=== PATIENT | male | born 1960 | race Caucasian/White ===

== ENCOUNTER 2021-12-05 01:44 | Emergency (ER) | payer BC, MEDICARE ==
[2021-12-05] MEDS ORDERED: methylPREDNISolone Sod Succ 125 MG in Sodium Chloride 0.9% 100 ML IV ONE (02:11)
[2021-12-05] MEDS ORDERED: Albuterol/Ipratropium 3.0-0.5 MG/3 ML Neb Soln NEB ONE ×2 (02:11→05:16)
[2021-12-05] MEDS ORDERED: Azithromycin 500 MG in Sodium Chloride 0.9% 250 ML IV ONE (02:12)
[2021-12-05] MEDS ORDERED: methylPREDNISolone Sodium Succinate 125 MG/2 ML SDV IVPUSH ONE (02:28)
[2021-12-05 03:07] LABS: CORONAVIRUS COVID-19 NAA NEGATIVE (NEGATIVE)
[2021-12-05] MEDS ORDERED: Iopamidol 755 Mg/ML 75 ML Bottle IV ONE (03:42)
[2021-12-05] MEDS ORDERED: SODIUM CHLORIDE 0.9% IV ONE (05:15)
[2021-12-05] MEDS ORDERED: CEFTRIAXONE IV ONE (05:15)
[2021-12-05] MEDS ORDERED: cefTRIAXone 1 GM Vial ONE (05:22)
[2021-12-05 05:35] LABS: BASE EXCESS VENOUS,POC 2 mmol/L (-2 - 3+); PCO2 VENOUS,POC 49 mmHg (41-51); PH VENOUS,POC 7.38 pH Units (7.32-7.43)
== END 2021-12-05 06:03 ==
LOC: FB.ED 01:44
DX: J18.9 Pneumonia, unspecified organism (principal); J96.21 Acute and chronic respiratory failure with hypoxia; E87.6 Hypokalemia; J44.9 Chronic obstructive pulmonary disease, unspecified; E22.2 Syndrome of inappropriate secretion of antidiuretic hormone; Z20.822 Contact with and (suspected) exposure to COVID-19
CPT/HCPCS: 0240U; 36415; 71045; 71275; 80053; 80307; 83605; 84484; 85025; 93005; 93010; 96365; 96367; 96375; 99283; 99285-25; J0456; J0696; J2930; J3490; J7050; J7620; Q9967

== ENCOUNTER 2022-08-25 16:01 | Inpatient (IN) | payer MEDICARE, MEDICAID ==
[2022-08-25] MEDS ORDERED: Furosemide 40 MG/4 ML VIAL IVPUSH ONE (16:08)
[2022-08-25] MEDS ORDERED: Nitroglycerin/D5W 25 MG/250 ML BOTTLE IV SCH (16:15)
[2022-08-25 16:39] LABS: BASE EXCESS VENOUS,POC 19 mmol/L (-2 - 3+); PCO2 VENOUS,POC 119 mmHg (41-51); PH VENOUS,POC 7.26 pH Units (7.32-7.43)
[2022-08-25] MEDS ORDERED: Albuterol/Ipratropium 3.0-0.5 MG/3 ML Neb Soln NEB ONE (16:53)
[2022-08-25 17:03] LABS: ESTIMATED GFR 104 mL/min (>60)
[2022-08-25] MEDS ORDERED: methylPREDNISolone Sodium Succinate 125 MG/2 ML SDV IVPUSH ONE (17:04)
[2022-08-25 17:35] LABS: CORONAVIRUS COVID-19 NAA NEGATIVE (NEGATIVE)
[2022-08-25 18:33] LABS: BASE EXCESS VENOUS,POC 22 mmol/L (-2 - 3+); PCO2 VENOUS,POC 130 mmHg (41-51); PH VENOUS,POC 7.26 pH Units (7.32-7.43)
[2022-08-25] MEDS ORDERED: Iopamidol 755 Mg/ML 75 ML Bottle IV ONE (19:04)
[2022-08-25] MEDS ORDERED: LORazepam 2 MG/ML SDV IVPUSH ONE (20:48)
[2022-08-25 20:49] LABS: BASE EXCESS VENOUS,POC 23 mmol/L (-2 - 3+); PCO2 VENOUS,POC 112 mmHg (41-51); PH VENOUS,POC 7.32 pH Units (7.32-7.43)
[2022-08-25] MEDS: Sodium Chloride 0.9% 10 ML Syringe FLUSH PRN (22:16)
[2022-08-25] MEDS ORDERED: Sodium Chloride 0.9% 1,000 ML IV SCH (22:45)
[2022-08-26] MEDS ORDERED: Albuterol/Ipratropium 3.0-0.5 MG/3 ML Neb Soln NEB ONE (00:53)
[2022-08-26] MEDS ORDERED: methylPREDNISolone Sodium Succinate 125 MG/2 ML SDV IVPUSH ONE (00:53)
[2022-08-26] MEDS: Sodium Chloride 0.9% 10 ML Syringe FLUSH PRN ×5 (00:59→21:29)
[2022-08-26] MEDS ORDERED: Ondansetron 4 MG/2 ML SDV IV PRN (01:02)
[2022-08-26] MEDS ORDERED: LORazepam 2 MG/ML SDV IV PRN (01:02)
[2022-08-26] MEDS ORDERED: Acetaminophen 325 MG Tab PO PRN (01:02)
[2022-08-26] MEDS ORDERED: Magnesium Hydroxide 400 MG/5 ML Susp 30 ML Cup PO PRN (01:02)
[2022-08-26] MEDS ORDERED: Sodium Chloride 0.9% 500 ML IV ONE (01:02)
[2022-08-26] MEDS ORDERED: Nitroglycerin 0.4 MG Tab.SL SL PRN (01:07)
[2022-08-26] MEDS ORDERED: Albuterol 0.083% 2.5 MG/3 ML Neb Soln NEB PRN (01:10)
[2022-08-26] MEDS ORDERED: Nitroglycerin/D5W 25 MG/250 ML BOTTLE IV SCH (01:30)
[2022-08-26] MEDS: Enoxaparin 40 MG/0.4 ML Syringe SUBCUT SCH ×2 (01:52→21:26)
[2022-08-26] MEDS: cefTRIAXone 1 GM Vial IVPUSH SCH ×2 (01:52→21:26)
[2022-08-26] MEDS: Ipratropium 0.02% 0.5 MG/2.5 ML Neb Soln INH SCH ×4 (02:14→21:03)
[2022-08-26 03:26] LABS: BASE EXCESS VENOUS,POC 16 mmol/L (-2 - 3+); PCO2 VENOUS,POC 71 mmHg (41-51); PH VENOUS,POC 7.41 pH Units (7.32-7.43)
[2022-08-26] MEDS ORDERED: methylPREDNISolone Sodium Succinate 125 MG/2 ML SDV IVPUSH SCH (06:00)
[2022-08-26 06:55] LABS: ESTIMATED GFR 109 mL/min (>60)
[2022-08-26 06:59] LABS: BASE EXCESS VENOUS,POC 20 mmol/L (-2 - 3+); PCO2 VENOUS,POC 50 mmHg (41-51); PH VENOUS,POC 7.56 pH Units (7.32-7.43)
[2022-08-26] MEDS: Furosemide 20 MG Tab PO SCH (08:48)
[2022-08-26] MEDS: Escitalopram 10 MG Tab PO SCH (08:48)
[2022-08-26] MEDS: Doxycycline 100 MG Tab PO SCH ×2 (08:48→21:41)
[2022-08-26] MEDS: Budesonide 0.5 MG/2 ML Neb Susp NEB SCH ×2 (08:58→21:08)
[2022-08-26] MEDS: Arformoterol 15 MCG/2 ML Neb Soln INH SCH ×2 (09:40→21:24)
[2022-08-26] MEDS: Sodium Chloride 0.9% Inhalation Soln 3 ML Neb INH SCH ×3 (11:52→21:12)
[2022-08-26] MEDS: Pantoprazole 40 MG Vial IVPUSH SCH (11:52)
[2022-08-26] MEDS: hydrALAZINE 20 MG/ML SDV IVPUSH PRN (17:58)
[2022-08-26 20:18] LABS: PO2 ARTERIAL,POC 55 mmHg (83-108)
[2022-08-27] MEDS: hydrALAZINE 20 MG/ML SDV IVPUSH PRN ×2 (01:36→19:01)
[2022-08-27] MEDS: Sodium Chloride 0.9% 10 ML Syringe FLUSH PRN ×3 (01:41→20:45)
[2022-08-27] MEDS: Ipratropium 0.02% 0.5 MG/2.5 ML Neb Soln INH SCH ×4 (02:56→19:01)
[2022-08-27 06:26] LABS: BASE EXCESS VENOUS,POC 18 mmol/L (-2 - 3+); PCO2 VENOUS,POC 69 mmHg (41-51); PH VENOUS,POC 7.44 pH Units (7.32-7.43)
[2022-08-27 06:33] LABS: ESTIMATED GFR 115 mL/min (>60)
[2022-08-27] MEDS: predniSONE 20 MG Tab PO SCH (08:05)
[2022-08-27] MEDS: Furosemide 20 MG Tab PO SCH (08:05)
[2022-08-27] MEDS: Escitalopram 10 MG Tab PO SCH (08:06)
[2022-08-27] MEDS: Doxycycline 100 MG Tab PO SCH ×2 (08:06→20:43)
[2022-08-27] MEDS: Pantoprazole 40 MG Vial IVPUSH SCH (08:06)
[2022-08-27] MEDS: Arformoterol 15 MCG/2 ML Neb Soln INH SCH ×2 (08:43→20:42)
[2022-08-27] MEDS: Budesonide 0.5 MG/2 ML Neb Susp NEB SCH ×2 (08:56→20:42)
[2022-08-27] MEDS: Sodium Chloride 0.9% Inhalation Soln 3 ML Neb INH SCH ×3 (09:13→20:42)
[2022-08-27] MEDS: cefTRIAXone 1 GM Vial IVPUSH SCH (20:43)
[2022-08-27] MEDS: Enoxaparin 40 MG/0.4 ML Syringe SUBCUT SCH (20:43)
[2022-08-28] MEDS: Ipratropium 0.02% 0.5 MG/2.5 ML Neb Soln INH SCH ×4 (02:00→20:17)
[2022-08-28 06:44] LABS: ESTIMATED GFR 109 mL/min (>60)
[2022-08-28 06:47] LABS: BASE EXCESS VENOUS,POC 19 mmol/L (-2 - 3+); PCO2 VENOUS,POC 84 mmHg (41-51); PH VENOUS,POC 7.38 pH Units (7.32-7.43)
[2022-08-28] MEDS: predniSONE 20 MG Tab PO SCH (08:50)
[2022-08-28] MEDS: Doxycycline 100 MG Tab PO SCH ×2 (09:02→20:54)
[2022-08-28] MEDS: Escitalopram 10 MG Tab PO SCH (09:02)
[2022-08-28] MEDS: Furosemide 20 MG Tab PO SCH (09:02)
[2022-08-28] MEDS: Arformoterol 15 MCG/2 ML Neb Soln INH SCH ×2 (09:02→20:53)
[2022-08-28] MEDS: Pantoprazole 40 MG Vial IVPUSH SCH (09:05)
[2022-08-28] MEDS: Budesonide 0.5 MG/2 ML Neb Susp NEB SCH ×2 (09:06→20:53)
[2022-08-28] MEDS: Sodium Chloride 0.9% Inhalation Soln 3 ML Neb INH SCH ×3 (09:08→20:53)
[2022-08-28] MEDS: Enoxaparin 40 MG/0.4 ML Syringe SUBCUT SCH (20:53)
[2022-08-28] MEDS: cefTRIAXone 1 GM Vial IVPUSH SCH (20:54)
[2022-08-29] MEDS: Ipratropium 0.02% 0.5 MG/2.5 ML Neb Soln INH SCH ×4 (02:39→20:53)
[2022-08-29 06:55] LABS: BASE EXCESS VENOUS,POC 18 mmol/L (-2 - 3+); PCO2 VENOUS,POC 91 mmHg (41-51); PH VENOUS,POC 7.35 pH Units (7.32-7.43)
[2022-08-29 07:00] LABS: ESTIMATED GFR 109 mL/min (>60)
[2022-08-29] MEDS: predniSONE 20 MG Tab PO SCH (08:14)
[2022-08-29] MEDS: Escitalopram 10 MG Tab PO SCH (08:38)
[2022-08-29] MEDS: Furosemide 20 MG Tab PO SCH (08:38)
[2022-08-29] MEDS: Budesonide 0.5 MG/2 ML Neb Susp NEB SCH ×2 (08:39→20:57)
[2022-08-29] MEDS: Doxycycline 100 MG Tab PO SCH (08:39)
[2022-08-29] MEDS: Pantoprazole 40 MG Vial IVPUSH SCH (08:39)
[2022-08-29] MEDS: Arformoterol 15 MCG/2 ML Neb Soln INH SCH ×2 (08:55→20:56)
[2022-08-29] MEDS: Sodium Chloride 0.9% Inhalation Soln 3 ML Neb INH SCH ×3 (09:08→20:58)
[2022-08-29] MEDS: methylPREDNISolone Sodium Succinate 125 MG/2 ML SDV IVPUSH SCH (15:20)
[2022-08-29] MEDS: Enoxaparin 40 MG/0.4 ML Syringe SUBCUT SCH (20:57)
[2022-08-30] MEDS: methylPREDNISolone Sodium Succinate 125 MG/2 ML SDV IVPUSH SCH ×2 (00:55→07:42)
[2022-08-30] MEDS: Sodium Chloride 0.9% 10 ML Syringe FLUSH PRN ×2 (00:55→07:47)
[2022-08-30] MEDS: Ipratropium 0.02% 0.5 MG/2.5 ML Neb Soln INH SCH ×2 (02:35→07:39)
[2022-08-30 07:12] LABS: ESTIMATED GFR 115 mL/min (>60)
[2022-08-30 07:14] LABS: BASE EXCESS VENOUS,POC 15 mmol/L (-2 - 3+); PCO2 VENOUS,POC 84 mmHg (41-51); PH VENOUS,POC 7.35 pH Units (7.32-7.43)
[2022-08-30] MEDS: Escitalopram 10 MG Tab PO SCH (09:26)
[2022-08-30] MEDS: Furosemide 20 MG Tab PO SCH (09:26)
[2022-08-30] MEDS: Arformoterol 15 MCG/2 ML Neb Soln INH SCH (09:30)
[2022-08-30] MEDS: Budesonide 0.5 MG/2 ML Neb Susp NEB SCH (09:42)
[2022-08-30] MEDS: Sodium Chloride 0.9% Inhalation Soln 3 ML Neb INH SCH (09:43)
== END 2022-08-30 13:10 | disposition home or self-care (01) | DRG 189 ==
LOC: FB.ED 16:01 → FB.MS 08-26 00:47 → FB.ICU 08-26 01:27 → FB.MS 08-29 09:17
PROVIDERS: ADMIT Emergency Medicine; ATTEND Student in an Organized Health Care Education/Training Program
DX: J96.22 Acute and chronic respiratory failure with hypercapnia (principal); J96.02 Acute respiratory failure with hypercapnia; J96.01 Acute respiratory failure with hypoxia; J44.1 Chronic obstructive pulmonary disease with (acute) exacerbation; I26.99 Other pulmonary embolism without acute cor pulmonale; F33.0 Major depressive disorder, recurrent, mild; E87.29 Other acidosis; M47.812 Spondylosis without myelopathy or radiculopathy, cervical region; Z20.822 Contact with and (suspected) exposure to COVID-19; I51.7 Cardiomegaly; I27.20 Pulmonary hypertension, unspecified; R79.82 Elevated C-reactive protein (CRP); I50.9 Heart failure, unspecified; Z98.41 Cataract extraction status, right eye; Z98.42 Cataract extraction status, left eye; Z87.891 Personal history of nicotine dependence; Z28.310 Unvaccinated for COVID-19; Z99.81 Dependence on supplemental oxygen; Z79.51 Long term (current) use of inhaled steroids; Z79.899 Other long term (current) drug therapy
CPT/HCPCS: 0241U; 36415; 71045; 71275; 80048; 80053; 81001; 82803; 83605; 83880; 84484; 85025; 85379; 86140; 87040; 93005; 94640; 94660; 96365; 96366; 96375; 99285; A9270-GY; C9113; J0360; J0696; J1650; J1940; J2060; J2930; J3490; J7030; J7040; J7512; J7605; J7620; Q9967